=== PATIENT | male | born 1990 | race American Indian/Alaskan Native ===

== ENCOUNTER 2017-06-27 23:56 | Emergency (ER) | payer SELFPAY ==
[2017-06-27 23:57] VITALS: BMI 20.2
[2017-06-28 00:09] VITALS: BP 114/62; PULSE 80; RESP 14; TEMP 97.9; O2SAT 99
[2017-06-28] MEDS ORDERED: Silver Sulfadiazine 1% Cream (20 gm) TOP STA (00:18)
[2017-06-28] MEDS ORDERED: Silver Sulfadiazine 1% Cream (20 gm) ONE (00:28)
--- NOTE | 2017-06-28 00:37 | C.PDOC ---
History Of Present Illness 27 years old male presents to ED for evaluation of burn to left foot. Patient states while at work today someone spilled a pot of hot water on his left foot. Patient reports he was wearing sneakers and the hot water soaked through. Denies any other physical complaints. Time Seen by Provider: 06/28/17 00:09 Chief Complaint (Nursing): Lower Extremity Problem/Injury History Per: Patient History/Exam Limitations: no limitations Type Of Burn (Context): Hot Liquid Burn Descrption: Left: Foot Smoke Inhalation: None Associated Symptoms: denies: Headache, Dizziness, SOB, Cough, LOC (Duration In Comments) Recent travel outside of the [place]: No Past Medical History Reviewed: Historical Data, Nursing Documentation, Vital Signs Vital Signs: Last Vital Signs Temp 97.9 F 06/28/17 00:07 Pulse 80 06/28/17 00:07 Resp 14 06/28/17 00:07 BP 114/62 06/28/17 00:07 Pulse Ox 99 06/28/17 01:35 - Medical History PMH: Anemia (sickle cell) - Conferensum Procedures INJECT/INFUSE NEC (10/02/12) Family History: States: No Known Family Hx - Social History Hx Tobacco Use: No Hx Alcohol Use: No Hx Substance Use: No Review Of Systems Constitutional: Negative for: Fever, Chills Gastrointestinal: Negative for: Nausea, Vomiting, Abdominal Pain, Diarrhea Musculoskeletal: Positive for: Other (left foot burn) Neurological: Negative for: Weakness, Numbness Physical Exam - Physical Exam Appears: Non-toxic, No Acute Distress Skin: Warm, Dry, Other (bright branching erythema to dorsal medial aspect of left foot; no blisters) Head: Atraumatic, Normacephalic Eye(s): bilateral: Normal Inspection Oral Mucosa: Moist Neck: Supple Chest: Symmetrical Extremity: Normal ROM, No Tenderness, No Deformity Pulses: Left Dorsalis Pedis: Normal Neurological/Psych: Oriented x3, Normal Speech Gait: Steady ED Course And Treatment O2 Sat by Pulse Oximetry: 99 (RA) Pulse Ox Interpretation: Normal Medical Decision Making Medical Decision Making: Administered Silvadene cream and dressing to left foot. Patient instructed on burn care. He is stable for discharge Rx given. Disposition Counseled Patient/Family Regarding: Diagnosis, Need For Followup, Rx Given - Disposition Disposition: HOME/ ROUTINE Disposition Time: 00:35 Condition: STABLE Additional Instructions: Apply cream to foot area 1-2 times daily Take pain medicine as needed Prescriptions: Silver Sulfadiazine 1% [Silver Sulfadiazine] 1 cre TP DAILY #1 jar Instructions: Skin Blanchard (DC) Forms: [facility] (Polish) - POA Present On Arrival: None - Clinical Impression Clinical Impression: First degree burn of left foot - PA / JUNIOR PROGRAMMER ANALYST / Resident Statement MD/DO has reviewed & agrees with the documentation as recorded. - Scribe Statement The provider has reviewed the documentation as recorded by the Scribquan Miranda All medical record entries made by the Angelaibquan were at my direction and personally dictated by me. I have reviewed the chart and agree that the record accurately reflects my personal performance of the history, physical exam, medical decision making, and the department course for this patient. I have also personally directed, reviewed, and agree with the discharge instructions and disposition.
== END 2017-06-28 00:47 | disposition home or self-care (01) ==
LOC: C.ER 23:56
DX: T25.122A Burn of first degree of left foot, initial encounter (principal); X11.8XXA Contact with other hot tap-water, initial encounter; Y99.0 Civilian activity done for income or pay